=== PATIENT | male | born 1975 | race Caucasian/White ===

== ENCOUNTER 2022-09-29 21:09 | Emergency (ER) | payer OTHER, SELFPAY ==
--- NOTE | ~2022-09-29 | CT_ITS ---
EXAMINATION: CT abdomen pelvis w con DATE: 09/30/2022 02:03 INDICATION: Right lower quadrant abdominal pain. Right flank pain. TECHNIQUE: Computed tomography (CT) of the abdomen and pelvis was performed with 100 mL Omnipaque 350 intravenous contrast. Automated exposure control and iterative reconstruction technique were employe d. The dose-length product was 583.09 mGy-cm. COMPARISON: CT abdomen 05/28/2019 FINDINGS: The visualized portions of the lung bases demonstrate mild chronic lung disease. No pleural effusion. The heart size is normal. No pericardial effusion. There is a small sliding hiatal hernia. There is a 5 mm cyst in the liver. The gallbladder, spleen, pancreas, adrenal glands, and kidneys ar e normal. There is diverticulosis of the colon without evidence of diverticulitis. Again seen is an a ppendicolith in the appendix, which is short and fluid filled with diameter of 10 mm without signific ant change. No wall thickening or fat stranding to suggest inflammation. There are no dilated loops o f bowel. There are no pathologically enlarged lymph nodes. There is no free intraperitoneal fluid. Th ere is mild thoracolumbar spondylosis. IMPRESSION: 1. Small sliding hiatal hernia. Reviewed, dictated and finalized at location A. [facility]
[2022-09-29 21:57] VITALS: BP 133/69; PULSE 69; RESP 18; TEMP 36.9; O2SAT 100
[2022-09-29 22:15] LABS: Basophils Percent Auto 0.2 % (0.2-1.2); Eosinophils Absolute Auto 0.1 K/mm3 (0-0.3); Hemoglobin 12.8 g/dL (14.0-18.0); Immature Granulocyte Absolute 0.02 K/mm3 (0.00-0.031); Immature Granulocyte Percent A 0.3 % (0-0.5); Lymphocytes Absolute Auto 1.17 K/mm3 (0.9-3.2); Lymphocytes Percent Auto 18.1 % (18.3-44.2); Mean Corpuscular HGB Conc 32.8 g/dl (32-36); Mean Corpuscular Hemoglobin 26.6 pg (26-34); Mean Corpuscular Volume 80.9 fl (80-100); Mean Platelet Volume 10.3 fl (7.4-10.4); Monocytes Absolute Auto 0.9 K/mm3 (0.1-0.6); Monocytes Percent Auto 14.5 % (2.6-8.5); Neutrophils Absolute Auto 4.2 K/mm3 (1.3-6.7); Neutrophils Percent Auto 64.9 % (45.5-73.1); Platelet Count Result 329 k/mm3 (150-375); Red Blood Count 4.82 M/mm3 (4.6-6.20); Red Cell Distribution Width 13.3 % (11.5-14.5); White Blood Count 6.5 K/mm3 (4.5-10.0)
[2022-09-29 22:20] LABS: Appearance Urine Clear (Clear); Bilirubin Urine Negative (Negative); Blood Urine Negative (Negative); Color Urine Yellow (Yellow); Glucose Urine UA Negative (Negative); Ketones Urine Negative (Negative); Leukocyte Esterase Ur Negative LEU/UL (Negative); Nitrate Urine Negative (Negative); Protein Urine Negative (Negative); Urobilinogen Urine 0.2 mg/dL (<2.0)
[2022-09-29 22:25] LABS: RBC Urine 0-2 /hpf (0-2); WBC Urine 0-3 /hpf
[2022-09-29 22:25] LABS: Alanine Aminotransferase 44 U/L (6-50); Albumin Level 4.6 g/dL (3.5-5.1); Alkaline Phosphatase 78 U/L (38-126); Anion Gap 7 mmol/L (8-16); Aspartate Amino Transferase 38 U/L (17-59); Bilirubin,Total 1.2 mg/dL (0.2-1.3); Blood Urea Nitrogen 21 mg/dL (9-20); Calcium 8.7 mg/dL (8.4-10.2); Carbon Dioxide 31 mmol/L (22-30); Chloride 99 mmol/L (98-107); Estimated CRCL calculation 72 ml/min; Estimated Glomerular Filt Rate 59; Glucose 101 mg/dL (65-110); Lipase 87 U/L (23-300); Potassium 4.2 mmol/L (3.4-5.0); Sodium 137 mmol/L (137-145)
[2022-09-29 22:34] LABS: Add Urine Microscopic? NO
[2022-09-29] MEDS: ONDANSETRON HCL ODT 4 MG TABLET PO (23:31)
[2022-09-30] VITALS (25 sets, daily range): BP systolic 118–128; BP diastolic 64–75; PULSE 51–53; RESP 16; O2SAT 98–100
--- NOTE | 2022-09-30 01:19 | ED.ABDPAIN ---
HPI - Abdominal Pain General Chief Complaint: Abdominal Pain <KALIA Barksdale Last Filed: 09/30/22 04:50> Stated Complaint: ABD PAIN X1D <KALIA Barksdale Last Filed: 09/30/22 04:50> Time Seen by Provider: 09/29/22 23:27 <KALIA Barksdale Last Filed: 09/30/22 04:50> Source: patient <KALIA Barksdale Last Filed: 09/30/22 04:50> Mode of arrival: ambulatory <KALIA Barksdale Last Filed: 09/30/22 04:50> Limitations: no limitations <KALIA Barksdale Last Filed: 09/30/22 04:50> History of Present Illness HPI narrative: Patient is a 46-year-old male who presents to the ED with report of diffuse abdominal pain. Patient reports he began feeling slightly unwell yesterday afternoon. He did not eat dinner because his stomach felt slightly upset. Today he developed worsening pain throughout his lower abdomen. He describes the pain as a aching and burning. He also reports having abdominal bloating and distention, nausea, chills. Denies vomiting, fevers, diarrhea, constipation, rectal bleeding, melena, urinary symptoms. Denies history of similar pain. Patient has history of acid reflux, but denies this feeling similar. <KALIA Barksdale Last Filed: 09/30/22 04:50> Related Data Allergies/Adverse Reactions: Allergies Allergy/AdvReac Type Severity Reaction Status Date / Time No Known Allergies Allergy Verified 09/30/22 02:18 <KALIA Barksdale Last Filed: 09/30/22 04:50> Review of Systems Review of Systems: CONSTITUTIONAL: See HPI. CARDIOVASCULAR: Denies chest pain, palpitations, or edema. RESPIRATORY: Denies cough or dyspnea. GASTROINTESTINAL: See HPI. GENITOURINARY: Denies dysuria or hematuria. SKIN: Denies rash or itching. <KALIA Barksdale Last Filed: 09/30/22 04:50> All systems reviewed & are unremarkable except as noted in HPI and below <Sharron Graham PA-C - Last Filed: 09/30/22 04:50> PMFSH Past Medical History Medical History: Medical History (Updated 10/01/22 @ 00:00 by Alberto Mello) GERD (gastroesophageal reflux disease) <Sharron Graham PA-C - Last Filed: 09/30/22 04:50> Surgical History Surgical History: Surgical History (Updated 09/30/22 @ 01:24 by Sharron Graham PA-C) No pertinent past surgical history <Sharron Graham PA-C - Last Filed: 09/30/22 04:50> Social History Social History: Social History (Updated 09/30/22 @ 01:24 by Sharron Graham PA-C) Smoking status: Never smoker <Sharron Graham PA-C - Last Filed: 09/30/22 04:50> Exam Narrative: GENERAL: Well appearing, well-nourished, non-toxic, in no acute distress. HEAD: Normocephalic, atraumatic. NECK: Supple. No adenopathy, no masses. RESPIRATORY: Airway patent, respirations nonlabored. Clear to auscultation bilaterally, no rales, rhonchi, wheezing. CARDIOVASCULAR: Regular rate and rhythm without murmurs, rubs, or gallops. Radial pulses 2+ and equal bilaterally. ABDOMINAL: Soft, no localized tenderness throughout abdomen, nondistended, no hepatosplenomegaly. Normoactive BS. MUSCULOSKELETAL: Moves all extremities. Strength/ROM intact without gross deformities. SKIN: Warm, dry, normal color. No rashes. NEURO: A&O X3. Speech clear. Cranial nerves II-XII grossly intact. Steady gait. No ataxic movements. PSYCHIATRIC: Appropriate mood and affect. Normal interaction. <Sharron Graham PA-C - Last Filed: 09/30/22 04:50> Course SPEECH LANGUAGE PATHOLOGIST ASSISTANT/PA Physician Supervision For this encounter, I have reviewed the mid-level provider documentation, treatment plan and medical decision making. I have had [id number] time with the patient. 46-year-old presenting with nonspecific abdominal pain nausea and vomiting. Physical exam showed a soft, nontender non rigid abdomen.Patient's workup was significant for nonspecific enteritis. He improved with
[2022-09-30] MEDS: ONDANSETRON INJ 4 MG/2 ML VIAL IV PUSH (01:47)
[2022-09-30] MEDS: BELLADONNA ALK/PHENOB ELIX 10 ML, MAG HYDROX/ALUMINUM HYD/SIMETH 30 ML, LIDOCAINE HCL 2... PO (02:20)
[2022-09-30] MEDS: DICYCLOMINE HCL 10 MG CAPSULE 20 MG PO (04:32)
== END 2022-09-30 05:08 | disposition home or self-care (01) ==
PROVIDERS: Emergency Provider Physician Assistant; PCP Family Medicine Sports Medicine
DX: K52.9 Noninfective gastroenteritis and colitis, unspecified (principal); R10.84 Generalized abdominal pain
CPT/HCPCS: 36415; 74177; 80053; 81003; 83690; 85025; 96365; 96375; 99284; A9270; J0131; J2405; Q9967